=== PATIENT | male | born 1990 | race Caucasian/White ===

== ENCOUNTER 2018-08-27 23:55 | Emergency (ER) | payer MEDICAID, OTHER ==
[~2018-08-27] VITALS: Ht 177.8 cm; Wt 64.9 kg
[~2018-08-27 23:55] MED LIST: NAPR220C2
--- NOTE | 2018-08-28 00:12 | NUR ---
PT HAD AN ABSCESS ON HIS THIGH X 1 MONTH THAT POPPED TODAY AND IS DRAINING PUS, PT STATED ABSCESS IS FROM IV DRUG USE. MONITORS APPLIED, SIDERAILS UP X2, CALL LIGHT WITHIN REACH. ERP AT BEDSIDE FOR EVAL
[2018-08-28] MEDS ORDERED: SULFAMETH./TRIMETHOPRIM DS 800MG/160MG TABLET ONE (00:19)
[2018-08-28] MEDS ORDERED: DIPH,PERTUSS(ACELL),TET VAC/PF 0.5 ML IM-VACC ONE ×2 (00:19→00:30)
[2018-08-28] MEDS ORDERED: CEPHALEXIN 500 MG CAPSULE ONE (00:19)
[2018-08-28 00:27] VITALS: BP 116/62
--- NOTE | 2018-08-28 00:28 | NUR ---
PT MEDICATED PER MAR
[2018-08-28] MEDS ORDERED: CEPHALEXIN 500 MG CAPSULE PO ONE (00:30)
[2018-08-28] MEDS ORDERED: SULFAMETH./TRIMETHOPRIM DS 800MG/160MG TABLET PO ONE (00:30)
[2018-08-28] MEDS ORDERED: LIDOCAINE-MPF 1%, 2ML ONE (00:39)
[2018-08-28] MEDS ORDERED: LIDOCAINE-MPF 1%, 5ML INFIL ONE (01:00)
== END 2018-08-28 01:57 | disposition home or self-care (01) ==
LOC: ED 08-28 01:49
DX: L03.115 Cellulitis of right lower limb (principal); F17.200 Nicotine dependence, unspecified, uncomplicated
CPT/HCPCS: 10060; 90471; 90715

== ENCOUNTER 2019-01-16 08:05 | Emergency (ER) | payer MEDICAID ==
[~2019-01-16] VITALS: Ht 172.7 cm; Wt 67.0 kg
[2019-01-16 08:08] VITALS: BP 123/68
--- NOTE | 2019-01-16 08:48 | NUR ---
FIRST CONTACT WITH PT. PT HAS ABCSESS ON RIGHT HIP, DRAINED 1 MONTH AGO. CAME IN WITH DRESSING TO HIP THAT HE CHANGED YESTERDAY. HAS BEEN CHANGING DRESSING EVERY DAY. STATES ABCSESS IS BACK. SMALL AMOUNT OF DRAINAGE ON DRESSING NOTED IN TRIAGE. PT DENIES PAIN. PT'S AOX4. RESPS EVEN AND UNLABORED.
--- NOTE | 2019-01-16 08:59 | NUR ---
report given to dara ambriz.
== END 2019-01-16 09:10 | disposition home or self-care (01) ==
LOC: ED 08:50
DX: L02.415 Cutaneous abscess of right lower limb (principal); F17.210 Nicotine dependence, cigarettes, uncomplicated
CPT/HCPCS: 99283

== ENCOUNTER 2019-04-04 21:14 | Emergency (ER) | payer MEDICAID ==
[~2019-04-04] VITALS: Ht 177.8 cm; Wt 72.8 kg
[2019-04-04 21:15] VITALS: BP 137/73
[2019-04-04] MEDS ORDERED: IBUPROFEN 200 MG TABLET ONE (21:59)
[2019-04-04] MEDS ORDERED: IBUPROFEN 200 MG TABLET PO ONE (22:00)
[2019-04-04] MEDS ORDERED: LIDOCAINE-MPF 1%, 5ML ONE ×2 (22:02→22:07)
[2019-04-04] MEDS ORDERED: LIDOCAINE-MPF 1%, 5ML INFIL ONE (22:30)
== END 2019-04-04 22:51 | disposition home or self-care (01) ==
LOC: ED 22:45
DX: L02.31 Cutaneous abscess of buttock (principal); L03.317 Cellulitis of buttock
CPT/HCPCS: 10060; 99283

== ENCOUNTER 2019-04-07 17:06 | Emergency (ER) | payer MEDICAID ==
[~2019-04-07] VITALS: Ht 177.8 cm; Wt 72.1 kg
[2019-04-07 17:16] VITALS: BP 123/78
--- NOTE | 2019-04-07 17:43 | NUR ---
PT HERE FOR WOUND RECHECK, STATES INITIAL I&D 3 DAYS AGO.
--- NOTE | 2019-04-07 18:57 | NUR ---
Patient/Caregiver given discharge instructions and they have confirmed that they understand the instructions. Patient ambulatory with steady gait.
== END 2019-04-07 18:59 | disposition home or self-care (01) ==
LOC: ED 18:40
DX: Z48.01 Encounter for change or removal of surgical wound dressing (principal); F11.10 Opioid abuse, uncomplicated
CPT/HCPCS: 99282

== ENCOUNTER 2019-04-10 19:05 | Emergency (ER) | payer MEDICAID ==
[~2019-04-10] VITALS: Ht 177.8 cm; Wt 73.3 kg
[2019-04-10 19:11] VITALS: BP 126/59
[2019-04-10] MEDS ORDERED: SULF1TAB24 PO (19:21)
[2019-04-10] MEDS ORDERED: IBUP-1222 PO (19:21)
[2019-04-10] MEDS ORDERED: CEPH-368 PO (19:21)
--- NOTE | 2019-04-10 19:21 | NUR ---
PT HERRE STATING HE IS TO HAVE ABSCESS REPACKED.
== END 2019-04-10 19:49 | disposition home or self-care (01) ==
LOC: ED 19:40
DX: Z48.01 Encounter for change or removal of surgical wound dressing (principal)
CPT/HCPCS: 99283

== ENCOUNTER 2019-07-20 06:20 | Emergency (ER) | payer MEDICAID ==
[~2019-07-20] VITALS: Ht 180.3 cm; Wt 78.9 kg
[~2019-07-20 06:20] MED LIST changes: +CEPH-368 PO; +IBUP-1222 PO; +SULF1TAB24 PO
[2019-07-20 06:26] VITALS: BP 121/74
--- NOTE | 2019-07-20 06:49 | NUR ---
REPORT GIVEN TO ONCOMING LOWELL SAMUEL
== END 2019-07-20 07:20 | disposition home or self-care (01) ==
LOC: ED 07:18
DX: K08.89 Other specified disorders of teeth and supporting structures (principal); F17.290 Nicotine dependence, other tobacco product, uncomplicated
CPT/HCPCS: 99283

== ENCOUNTER 2020-02-23 13:07 | Emergency (ER) | payer MEDICAID ==
[~2020-02-23] VITALS: Ht 182.9 cm; Wt 79.1 kg
[2020-02-23 13:14] VITALS: BP 118/59
[2020-02-23] MEDS ORDERED: LIDOCAINE 1%-EPI 1:100K, 20ML SQ ONE (13:30)
[2020-02-23] MEDS ORDERED: LIDOCAINE-MPF 1%, 5ML ONE (13:38)
--- NOTE | 2020-02-23 13:41 | NUR ---
CARLOS A SWANSON IN FOR I&D, PT TOLERATED WELL.
== END 2020-02-23 14:16 | disposition home or self-care (01) ==
LOC: ED 14:03
DX: L02.415 Cutaneous abscess of right lower limb (principal)
CPT/HCPCS: 10060; 99283

== ENCOUNTER 2020-02-25 18:07 | Emergency (ER) | payer MEDICAID ==
[~2020-02-25] VITALS: Ht 182.9 cm; Wt 80.4 kg
[2020-02-25 18:18] VITALS: BP 117/74
== END 2020-02-25 19:37 | disposition home or self-care (01) ==
LOC: ED 18:31
DX: L02.415 Cutaneous abscess of right lower limb (principal)
CPT/HCPCS: 99282